=== PATIENT | male | born 1970 | race Hispanic/Latino ===

== ENCOUNTER 2019-08-03 11:55 | Emergency (ER) | payer BC, OTHER ==
[~2019-08-03] VITALS: Ht 167.6 cm; Wt 79.4 kg
[2019-08-03] MEDS ORDERED: ONDANSETRON HCL INJ 2MG/ML 2ML 2 MG/ML VIAL IV STA (12:55)
[2019-08-03] MEDS ORDERED: SODIUM CHLORIDE 0.9% 1000ML 1,000 ML IV STA ×2 (12:55)
[2019-08-03] MEDS ORDERED: KETOROLAC TROMETHAMINE 30 MG/ML VIAL IV STA (12:55)
[2019-08-03] MEDS ORDERED: MORPHINE SULFATE INJ 4 MG/ML INJ 1ML IV STA (12:55)
[2019-08-03] MEDS ORDERED: DIAZEPAM 5 MG TAB PO ONE (13:00)
[2019-08-03] MEDS ORDERED: DEXAMETHASONE SOD PHOS 10 MG/1 ML VIAL IV ONE (13:00)
[2019-08-03 13:22] LABS: BASOPHILS % 0.6 % (0.0-1.0); EOSINOPHILS # (AUTO) 0.3 (0.0-0.4); HEMATOCRIT 47.1 % (38.2-49.6); HEMOGLOBIN 16.2 g/dL (14.0-18.0); LYMPHOCYTES # (AUTO) 1.6 (1.0-3.2); LYMPHOCYTES % 23.9 % (18.0-39.1); MEAN CORPUSCULAR HEMOGLOBIN 30.1 pg (28-32); MEAN CORPUSCULAR HGB CONC 34.4 g/dL (31-35); MEAN CORPUSCULAR VOLUME 87.5 fL (81-99); MONOCYTES # (AUTO) 0.6 (0.2-0.8); MONOCYTES % 8.7 % (4.4-11.3); NEUTROPHILS # (AUTO) 4.1 (2.1-6.9); NEUTROPHILS % 62.5 % (38.7-80.0); PLATELET COUNT 234 x10e3/uL (140-360); RED BLOOD COUNT 5.38 x10e6/uL (4.3-5.7); RED CELL DISTRIBUTION WIDTH 13.4 % (11.7-14.4)
[2019-08-03 13:44] LABS: ALANINE AMINOTRANSFERASE 53 IU/L (0-55); ALBUMIN 4.3 g/dL (3.5-5.0); ALBUMIN/GLOBULIN RATIO 1.2 (0.8-2.0); ALKALINE PHOSPHATASE 84 IU/L (40-150); ANION GAP 14.3 mmol/L (8-16); BLOOD UREA NITROGEN 16 mg/dL (7-26); BUN/CREATININE RATIO 14 (6-25); CALCIUM 10.3 mg/dL (8.4-10.2); CARBON DIOXIDE 28 mmol/L (22-29); CHLORIDE 102 mmol/L (98-107); CREATININE, SERUM 1.18 mg/dL (0.72-1.25); EST GLOMERULAR FILTRATION RATE > 60 ML/MIN (60-); GLUCOSE 103 mg/dL (74-118); POTASSIUM 4.3 mmol/L (3.5-5.1); SODIUM 140 mmol/L (136-145)
[2019-08-03 13:49] LABS: BILIRUBIN,URINE NEGATIVE (NEGATIVE); CLARITY,URINE CLEAR (CLEAR); COLOR,URINE YELLOW (YELLOW); KETONES,URINE NEGATIVE (NEGATIVE); LEUKOCYTE ESTERASE ,URINE NEGATIVE (NEGATIVE); NITRITE,URINE NEGATIVE (NEGATIVE); PROTEIN,URINE DIPSTICK NEGATIVE (NEGATIVE); URINE UROBILINOGEN 0.2 mg/dL (0.2 - 1)
--- NOTE | 2019-08-03 16:05 | Diagnostic Imaging Report ---
Examination: MRI SPINE LUMBAR WO CONTRAST History: Low back pain with radiation to the right lower extremity; right lumbar radiculopathy. Comparison studies: None Technique: Sagittal, coronal and axial T2 , sagittal T1 and STIR; axial spin density oblique. Findings: Number of lumbar vertebral bodies: Five. Alignment: Normal lordosis. No scoliosis. Soft tissues: No T2 hyperintense inflammatory changes. Posterior paraspinal soft tissues and muscles: No abnormality. Lower thoracic cord: Normal in signal and morphology. The tip of the conus is at T12-L1. Cauda equina: No masses. No arachnoiditis. Vertebrae: No fractures, infection or neoplasm. Degenerative changes: L1-L2: No abnormalities. L2-L3: Mild diffuse disc bulge and mild bilateral facet arthropathy. No foraminal or canal stenosis. L3-L4: Mild diffuse disc bulge and mild bilateral facet arthropathy. No foraminal or canal stenosis. L4-L5: Right central and subarticular disc protrusion causes mild canal stenosis and impinges the descending right L5 nerve root. Mild bilateral neural foraminal narrowing due to diffuse disc bulge and mild bilateral facet arthropathy. L5-S1: Central disc protrusion superimposed on a diffuse disc bulge results in moderate bilateral neural foraminal narrowing. No canal stenosis. There is contact and mild posterior displacement of the left greater than right descending S1 nerve roots by the central disc protrusion IMPRESSION: 1. Degenerative changes L2-L3 through L5-S1 with mild canal stenosis and impingement of the descending right L5 nerve root by a right central and subarticular disc protrusion at L4-L5. 2. Contact and mild posterior displacement of the left greater than right descending S1 nerve roots at L5-S1 by a central disc protrusion. Moderate bilateral foraminal narrowing at L5-S1. Signed by: Dr. Marie Lema M.D. on 08/03/2019 4:01 PM
[2019-08-03] MEDS ORDERED: DEXAMETHASONE SOD PHOS 10 MG/1 ML VIAL ONE (17:20)
[2019-08-03] MEDS ORDERED: DIAZEPAM 5 MG TAB ONE (17:20)
== END 2019-08-03 17:37 | disposition home or self-care (01) ==
LOC: ER 11:55
DX: M54.5 Low back pain (principal); S39.012A Strain of muscle, fascia and tendon of lower back, initial encounter
CPT/HCPCS: 36415; 72148; 80053; 81001; 85025; 99284; J1100; J1885

== ENCOUNTER 2019-08-26 08:16 | Observation (INO) | payer BC ==
--- NOTE | 2019-08-24 16:39 | Diagnostic Imaging Report ---
EXAMINATION: CHEST 2 VIEWS INDICATION: Pre-operative COMPARISON: None FINDINGS: LINES/TUBES:None LUNGS:The lungs are well-inflated. No focal consolidation or pulmonary edema. PLEURA:No pleural effusion or pneumothorax. MEDIASTINUM:The cardiomediastinal silhouette appears normal in size and shape. BONES/SOFT TISSUES:No acute osseous injury. ABDOMEN:No free air under the diaphragm. Status post cystectomy. IMPRESSION: No focal pneumonia or pulmonary edema. Signed by: Mike Sandhu MD on 08/24/2019 4:35 PM
[2019-08-24 16:40] LABS: BASOPHILS % 0.6 % (0.0-1.0); EOSINOPHILS # (AUTO) 0.2 (0.0-0.4); EOSINOPHILS % 3.9 % (0.0-6.0); HEMATOCRIT 46.3 % (38.2-49.6); HEMOGLOBIN 15.4 g/dL (14.0-18.0); LYMPHOCYTES # (AUTO) 1.9 (1.0-3.2); LYMPHOCYTES % 36.3 % (18.0-39.1); MEAN CORPUSCULAR HEMOGLOBIN 30.1 pg (28-32); MEAN CORPUSCULAR HGB CONC 33.3 g/dL (31-35); MEAN CORPUSCULAR VOLUME 90.4 fL (81-99); MONOCYTES # (AUTO) 0.6 (0.2-0.8); MONOCYTES % 11.6 % (4.4-11.3); NEUTROPHILS # (AUTO) 2.4 (2.1-6.9); NEUTROPHILS % 47.4 % (38.7-80.0); PLATELET COUNT 191 x10e3/uL (140-360); RED BLOOD COUNT 5.12 x10e6/uL (4.3-5.7); RED CELL DISTRIBUTION WIDTH 13.5 % (11.7-14.4)
[2019-08-24 16:50] LABS: INR 0.87; PROTHROMBIN TIME 12.3 seconds (11.9-14.5)
[2019-08-24 16:51] LABS: PARTIAL THROMBOPLASTIN TIME 25.2 seconds (23.8-35.5)
[2019-08-24 16:57] LABS: ANION GAP 15.5 mmol/L (8-16); BLOOD UREA NITROGEN 16 mg/dL (7-26); BUN/CREATININE RATIO 15 (6-25); CALCIUM 9.2 mg/dL (8.4-10.2); CARBON DIOXIDE 29 mmol/L (22-29); CHLORIDE 102 mmol/L (98-107); CREATININE, SERUM 1.07 mg/dL (0.72-1.25); EST GLOMERULAR FILTRATION RATE > 60 ML/MIN (60-); GLUCOSE 100 mg/dL (74-118); POTASSIUM 3.5 mmol/L (3.5-5.1); SODIUM 143 mmol/L (136-145)
[~2019-08-26] VITALS: Ht 167.6 cm; Wt 74.8 kg
[~2019-08-26 08:16] MED LIST: ACETAMINOPHEN 1000 MG/100 ML 100 ML IV ONE; BACITRACIN 50,000 UNIT VIAL ONE; BUPIVACAINE 0.5%/EPI 30 ML SDV INJ ONE; DIAZEPAM5 MG PO; DICLOFENAC SODI75 MG PO; IBUPROFEN 800MG/ 250ML 250 ML IV ONE; LIDOCAINE HCL (LTA) 4 ML SOLN ONE; THROMBIN FOR SOLN 5,000 UNIT VIAL ONE; TYLENOL WITH C1 EACH PO
--- OUTSIDE RECORDS SUMMARY | 2019-08-26 08:18 | XMS REPORT ---
Author [facility] Address Unknown Phone Unavailable Care Team Providers [employer] Att[employer] Name Role Phone FRANK CASTANEDA Unavailable Unavailable DARI TURCIOS Unavailable Unavailable Problems This patient has no known problems. Allergies, Adverse Reactions, Alerts This patient has no known allergies or adverse reactions. Medications This patient has no known medications. Results Test Description Test Time Test Comments Text Results Atomic Results Result Comments CHEST 2 VIEWS 2019-08-24 16:34:00 [place] [address] Patient Name: CODY CORTES MR #: [id number] : 1970 Age/Sex: 49/M Req #: [id number] Adm Physician: Ordered by: FRANK CASTANEDA MD Report #: [id number] Location: OR Room/Bed: Procedure: [id number] DX/CHEST 2 VIEWS Exam Date: Exam Time: REPORT STATUS: Signed EXAMINATION: CHEST 2 VIEWS INDICATION: Pre-operative COMPARISON: None FINDINGS: LINES/TUBES:None LUNGS:The lungs are well- inflated. No focal consolidation or pulmonary edema. PLEURA:No pleural effusion or pneumothorax. MEDIASTINUM:The cardiomediastinal silhouette appears normal in size and shape. BONES/SOFT TISSUES:No acute osseous injury. ABDOMEN:No free air under the diaphragm. Status post cystectomy. IMPRESSION: No focal pneumonia or pulmonary edema. Signed by: Remedios Grajeda MD on 08/24/2019 4:35 PM Dictated By: REMEDIOS GRAJEDA MD 34 Transcribed By: AMADOR on 08/24/191634 COPY TO: FRANK CASTANEDA MD MRI SPINE LUMBAR WO 2019-08-03 15:58:00 [place] [address] Patient Name: CODY CORTES MR #: [id number] : 1970 Age/Sex: 49/M Req #: [id number] Adm Physician: Ordered by: DARI TURCIOS MD, MD Report #: [id number] Location: ER Room/Bed: Procedure: [id number] MRI/MRI SPINE LUMBAR WO Exam Date: Exam Time: REPORT STATUS: Signed Examination: MRI SPINE LUMBAR WO CONTRAST History: Low back pain with radiation to the right lower extremity; right lumbar radiculopathy. Comparison studies: None Technique: Sagittal, coronal and axial T2 , sagittal T1 and STIR; axial spin density oblique. Findings: Number of lumbar vertebral bodies: Five. Alignment: Normal lordosis. No scoliosis. Soft tissues: No T2 hyperintense inflammatory changes. Posterior paraspinal soft tissues and muscles: No abnormality. Lower thoracic cord: Normal in signal and morphology. The tip of the conus is at T12-L1. Cauda equina: No masses. No arachnoiditis. Vertebrae: No fractures, infection or neoplasm. Degenerative changes: L1-L2: No abnormalities. L2-L3: Mild diffuse disc bulge and mild bilateral facet arthropathy. No foraminal or canal stenosis. L3-L4: Mild diffuse disc bulge and mild bilateral facet arthropathy. No foraminal or canal stenosis. L4-L5: Right central and subarticular disc protrusion causes mild canal stenosis and impinges the descending right L5 nerve root. Mild bilateral neural foraminal narrowing due to diffuse disc bulge and mild bilateral facet arthropathy. L5-S1: Central disc protrusion superimposed on a diffuse disc bulge results in moderate bilateral neural foraminal narrowing. No canal stenosis. There is contact and mild posterior displacement of the left greater than right descending S1 nerve roots by the central disc protrusion IMPRESSION: 1. Degenerative changes L2-L3 through L5-S1 with mild canal stenosis and impingement of the descending right L5 nerve root by a right central and subarticular disc protrusion at L4-L5. 2. Contact and mild posterior displacement of the left greater than right descending S1 nerve roots at L5-S1 by a central disc protrusion. Moderate bilateral foraminal narrowing at L5-S1. Signed by: Dr. Marie Gardiner M.D. on 08/03/2019 4:01 PM Dictated By: MARIE TATE MD [id number] Transcribed By: AMADOR on 08/03/19 1601 COPY TO: DARI TURCIOS
[2019-08-26] MEDS ORDERED: CEFAZOLIN SOD 1 GM/NS 50ML 50 ML IV ONE (08:57)
[2019-08-26] MEDS ORDERED: ZOLPIDEM TARTRATE 5 MG TAB PO PRN (11:15)
[2019-08-26] MEDS ORDERED: MAGNESIUM/ALUMINUM/SIMETHICONE 30 ML UDC PO PRN (11:15)
[2019-08-26] MEDS ORDERED: PROMETHAZINE HCL (IM) 25 MG/ML VIAL IM PRN (11:15)
[2019-08-26] MEDS ORDERED: ONDANSETRON HCL INJ 2MG/ML 2ML 2 MG/ML VIAL IV PRN (11:15)
[2019-08-26] MEDS ORDERED: MORPHINE SULFATE INJ 4 MG/ML INJ 1ML IM PRN (11:15)
[2019-08-26] MEDS ORDERED: ACETAMINOPHEN 325 MG TAB PO PRN (11:15)
[2019-08-26] MEDS ORDERED: HYDROMORPHONE 2MG/ML 2 MG/ML ML IV PRN (11:15)
[2019-08-26] MEDS ORDERED: CARISOPRODOL 350 MG TAB PO PRN (11:15)
[2019-08-26] MEDS ORDERED: FENTANYL CITRATE/PF 100MCG/2 ML INJ ONE ×2 (11:54→19:42)
--- NOTE | 2019-08-26 13:15 | Operative Report ---
DATE OF PROCEDURE: 08/26/2019 SURGEON: Viktor Hanley MD PREOPERATIVE DIAGNOSIS: Right L4-L5 disk herniation with inferior migration of the extruded disk fragment, M51.16. POSTOPERATIVE DIAGNOSIS: Right L4-L5 disk herniation with inferior migration of the extruded disk fragment, M51.16. PROCEDURES: Right L4-L5 laminotomy, medial facetectomy, and microsurgical diskectomy, 10879. ANESTHESIA: General. INDICATIONS: The patient is a 49-year-old man. Who presents with a right L4-L5 disk herniation with inferior migration of the extruded disk fragment into the region of the axilla of the L5 nerve root, symptomatic with an intractable right L5 radiculopathy. He was taken to the operating room for microsurgical decompression of the L5 nerve root. PROCEDURE IN DETAIL: After induction of general anesthesia, the patient was placed on the operating table in prone position over Roberto frame. Lumbar region was prepped and draped in sterile fashion. A preoperative x-ray was obtained. A small midline incision was created. The lumbar fascia was opened to the right of midline and subperiosteal dissection was carried out to expose the right side of the L4 and L5 lamina, and the medial aspect of the L4-L5 facet joint. A second x-ray confirmed correct localization. The operating microscope was brought in. A high-speed drill equipped with denise bur was used to drill the inferior aspect of the lamina of L4 and the medial rim of the L4-L5 facet joint and superior rim of the lamina of L5. The ligamentum flavum was resected and the dural sac and L5 nerve root were exposed. At 1st, the shoulder of the nerve root was explored, then the axilla was explored. At which point, the herniated disk material immediately came into view in the region of the axilla of the nerve root, markedly compressing the L5 nerve root. The extruded disk material was mobilized with a Black 4 instrument and then grasped with a micropituitary rongeur and carefully delivered out from the region of the axilla as the large disk fragment. This achieved immediate decompression of the nerve root. The nerve root could then be retracted medially and the opening into the anulus was further enlarged with a #11 blade, and the loose contents of the disk were evacuated with curettes and pituitary rongeurs. Excellent decompression was thus achieved. The wound was copiously irrigated with bacitracin solution. Meticulous hemostasis was secured. Retractor was removed. The platysma was closed with 3-0 Vicryl sutures. The skin was closed with 4-0 Monocryl sutures in subcuticular fashion. Steri-Strips and dressing were applied. The patient was awakened, extubated, and taken to postanesthesia care unit in stable condition. No intraoperative complications were encountered. Estimated blood loss was 10 mL. Viktor Hanley MD PP/LEE /[id number]
--- NOTE | 2019-08-26 14:34 | NUR ---
Received patient via stretcher from PACU. AAOX4 to time, person, place, situation. Respirations even and unlabored. Dressing to lower back clean, dry, and intact. Oriented to room. Instructed patient to use call light for assistance. Voiced understanding. Will continue to monitor.
[2019-08-26 14:59] VITALS: BP 138/83
[2019-08-26 15:06] VITALS: BP 138/83
[2019-08-26] MEDS: CEFAZOLIN SOD 1 GM/NS 50ML 50 ML IV SCH (15:31)
[2019-08-26] MEDS: OXYCODONE/ACETAMINOPHEN 5-325 1 EACH TABLET PO PRN (15:31)
[2019-08-26] MEDS: LACTATED RINGER'S 1,000 ML IV SCH ×2 (15:31→19:05)
[2019-08-26 17:46] VITALS: BP 137/88
--- NOTE | 2019-08-26 19:05 | NUR ---
WALKING ROUNDS PERFORMED, RECEIVED PT LAYING SEMI FOWLERS IN BED, AAOX3, RR EVEN AND NON-LABORED, ON ROOM AIR. NO S/SX OF DISTRESS NOTED. DRESSING TO POSTERIOR BACK NOTED TO BE CDI. LEFT PT LAYING SEMI FOWLERS IN BED, BED IN LOW LOCKED POSITION, SIDE RAILS UPX2, CALL LIGHT AND PHONE WITHIN REACH.
--- NOTE | 2019-08-26 19:10 | NUR ---
Report given to oncoming nurse of patient's status. No s/s of acute distress noted.
[2019-08-26] MEDS ORDERED: MIDAZOLAM HCL 2 MG/2 ML VIAL ONE (19:42)
[2019-08-26] MEDS ORDERED: NEOSTIGMINE 5 MG/5ML SYR ONE (19:47)
[2019-08-26] MEDS ORDERED: SEVOFLURANE INHAL SOLN 250 ML PEN BTL ONE (19:47)
[2019-08-26] MEDS ORDERED: PROPOFOL IV EMULSION 10 MG/ML 20 ML VIAL ONE (19:47)
[2019-08-26] MEDS ORDERED: LIDOCAINE HCL 2% JELLY 5 ML TUBE ONE (19:47)
[2019-08-26] MEDS ORDERED: LIDOCAINE HCL 2% LOCAL INJ 5 ML SDV VIAL INJ ONE (19:47)
[2019-08-26] MEDS ORDERED: ROCURONIUM BROMIDE 10 MG/ML 5ML VIAL ONE (19:47)
[2019-08-26] MEDS ORDERED: GLYCOPYRROLATE INJ 1MG/ 5 ML SYR ONE (19:47)
[2019-08-26] MEDS ORDERED: ONDANSETRON HCL INJ 2MG/ML 2ML 2 MG/ML VIAL ONE (19:47)
[2019-08-26] MEDS ORDERED: DEXAMETHASONE SOD PHOS INJ 4 MG/ML VIAL ONE (19:47)
[2019-08-26 20:00] VITALS: BP 117/69
[2019-08-26 20:45] VITALS: BP 117/69
[2019-08-27] VITALS: BP 105/68
[2019-08-27] MEDS: CEFAZOLIN SOD 1 GM/NS 50ML 50 ML IV SCH ×2 (00:32→09:00)
[2019-08-27] MEDS: LACTATED RINGER'S 1,000 ML IV SCH (00:34)
[2019-08-27 04:00] VITALS: BP 129/78
[2019-08-27] MEDS ORDERED: NORCO 7.5-3251 EACH PO (04:38)
--- NOTE | 2019-08-27 07:30 | NUR ---
Patient alert and responsive, rounds completed, call light within reach and will monitor.
[2019-08-27 09:00] VITALS: BP 111/53
[2019-08-27 09:56] VITALS: BP 111/53
[2019-08-27] MEDS: OXYCODONE/ACETAMINOPHEN 5-325 1 EACH TABLET PO PRN (11:47)
--- NOTE | 2019-08-27 12:44 | NUR ---
Patient cleared for discharge and provided with discharge summary, instructions and prescriptions. IV line removed, cath tip in place and dressing applied. Questions answered and patient discharged.
== END 2019-08-27 12:44 | disposition home or self-care (01) ==
LOC: OR 08:16 → PACU V 11:14 → MED/SURG 14:35
PROVIDERS: ADMIT Neurological Surgery; ATTEND Neurological Surgery
DX: M51.16 Intervertebral disc disorders with radiculopathy, lumbar region (principal); R12 Heartburn; Z90.49 Acquired absence of other specified parts of digestive tract; Z87.891 Personal history of nicotine dependence; Z01.810 Encounter for preprocedural cardiovascular examination; Z01.812 Encounter for preprocedural laboratory examination; Z01.811 Encounter for preprocedural respiratory examination
CPT/HCPCS: 36415; 63047; 71046; 72020; 80048; 85025; 85610; 85730; 86850; 86900; 88304; 93005; G0378 ×2; J0131; J0690 ×2; J1100; J2001 ×2; J2250; J2405; J2704; J3010; J3490; J7121

== ENCOUNTER 2019-09-22 13:00 | Outpatient (RCR) | payer BC ==
[~2019-09-22 13:00] MED LIST changes: -ACETAMINOPHEN 1000 MG/100 ML 100 ML IV ONE; -BACITRACIN 50,000 UNIT VIAL ONE; -BUPIVACAINE 0.5%/EPI 30 ML SDV INJ ONE; -IBUPROFEN 800MG/ 250ML 250 ML IV ONE; -LIDOCAINE HCL (LTA) 4 ML SOLN ONE; +NORCO 7.5-3251 EACH PO; -THROMBIN FOR SOLN 5,000 UNIT VIAL ONE
== END 2019-09-23 ==
LOC: PT 13:00
PROVIDERS: ATTEND Neurological Surgery
DX: M51.16 Intervertebral disc disorders with radiculopathy, lumbar region (principal)

== ENCOUNTER 2019-09-29 13:00 | Outpatient (RCR) | payer BC | END 2019-10-23 | LOC: PT 13:00 | PROVIDERS: ATTEND Neurological Surgery | DX: M51.16 Intervertebral disc disorders with radiculopathy, lumbar region (principal) ==

== ENCOUNTER 2021-05-08 15:00 | Outpatient (RCR) | payer BC | END 2021-05-23 | LOC: PT 15:00 | PROVIDERS: ATTEND Neurological Surgery | DX: M51.16 Intervertebral disc disorders with radiculopathy, lumbar region (principal) ==

== ENCOUNTER 2022-06-14 14:51 | Outpatient (RCR) | payer BC | END 2022-06-23 | LOC: PT 14:51 | PROVIDERS: ATTEND Neurological Surgery | DX: M51.16 Intervertebral disc disorders with radiculopathy, lumbar region (principal) ==